=== PATIENT | female | born 2000 | race African-American/Black ===

== ENCOUNTER 2020-03-08 15:18 | Emergency (ER) | payer BC, OTHER ==
--- OUTSIDE RECORDS SUMMARY | 2020-03-08 15:23 | XMS REPORT | Summary of Care ---
:2000 Author Organization [facility] - [facility] Address [address] [place] [id number] Care Team Providers Name Role Phone Gurvinder Rachel Insurance [employer] Pcp, Does Not Have A Primary Care Provider Reason for Visit Reason Comments Headache Other COVID swab Auth/Cert Status Reason Specialty Diagnoses / Referred By Referred To Procedures Contact Contact Emergency Medicine [facility] Em ergency Dept [address] [phone] Fax: Encounter Details Date Type Department Care Team Description 02/24/2020 Emergency ADC-Emergency Rosemary Garcia, Nonintr actable headache, Department DO unspecified chronicity [address] pattern, [place] [address] headache type ([place] [address] Dx) [phone] Allergies No Known Allergiesdocumented as of this encounter (statuses as of 02/24/2020) Medications Medication Sig Dispensed Refills Start Date End Date Status VYS50-gadt Take 1 Dose by 60 Each 5 10/31/2018 Act rubens carb,uvv-EO-wkw-dha mouth daily. (CITRANATAL ASSURE) 35 mg iron-1 mg -50 mg-300 mg combo pack ibuprofen 600 mg Take 1 tablet by 30 tablet 1 04/03/2019 Active tabletIndications: 39 mouth every 6 weeks gestation of (six) hours as needed (pain). simethicone 80 mg Take 2 tablets by 0 04/03/2019 Active chewable mouth after meals tabletIndications: 39 and at bedtime. weeks gestation of documented as of this encounter (statuses as of 02/24/2020) Active Problems Problem Noted Date Routine follow-up 05/04/2019 Previous section 03/17/2019 documented as of this encounter (statuses as of 02/24/2020) Resolved Problems Problem Noted Date Resolved Date care and examination immediately after delivery 1 06/04/2018 05/04/2019 High-risk , third trimester 03/17/2019 39 weeks gestation of 10/22/2017 03/17/20 19 Obesity (BMI 30-39.9) 10/22/2017 05/04/2019 Liveborn , of sears , born in hospital by 10/22/2017 05/04/2019 delivery documented as of this encounter (statuses as of 02/24/2020) Social History Tobacco Use Types Packs/Day Years Used Date Never Smoker Smokeless Tobacco: Never Used Alcohol Use Drinks/Week oz/Week Comments No Sex Assigned at Date Recorded Not on file COVID-19 Exposure Response Date Recorded In the last month, have you been in contact with Yes 02/24/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 documented as of this encounter Last Filed Vital Signs Vital Sign Reading Time Taken Comments Blood Pressure 136/87 02/24/2020 3:05 PM CABINET WORKER Pulse 91 02/24/2020 3:05 PM CABINET WORKER Temperature 37.3 C (99.2 F) 02/24/2020 3:05 PM CABINET WORKER Respiratory Rate 18 02/24/2020 3:05 PM CABINET WORKER Oxygen Saturation 98% 02/24/2020 3:05 PM CABINET WORKER Inhaled Oxygen Concentration - - Weight 81.6 kg (180 lb) 02/24/2020 3:05 PM CABINET WORKER Height 154.9 cm (5' 1") 02/24/2020 3:05 PM CABINET WORKER Body Mass Index 34.01 02/24/2020 3:05 PM CABINET WORKER documented in this encounter Discharge Instructions Rosemary Good, - 02/24/2020DIAGNOSIS 1. Headache 2. Suspected covid NO LIFE-THREATENING FINDINGS ON TODAY'S EXAM. PROCEDURES IN THE ER TODAY: None MEDICATIONS ADMINISTERED IN THE ER TODAY: None YOUR PRESCRIPTIONS AND [id number] MEDICATION RECOMMENDATIONS: You may use over the counter decongestants (such as sudafed) or pain medications (excedrin migraine)for your headache. SPECIAL CARE INSTRUCTIONS: None FOLLOW-UP RECOMMENDATIONS: RECOMMEND FOLLOW-UP WITH A PRIMARY CARE PROVIDER OR SPECIALIST IN 2-5 DAYS, ESPECIALLY IF NO IMPROVEMENT IN SYMPTOMS. TO FOLLOW-UP WITHIN THE [facility], TRY THESE OPTIONS (CLINIC APPOINTMENTS AVAILABLE ON [id number] BASIS): 1. SCHEDULE AN APPOINTMENT ONLINE AT [email or web address] 2. OR CALL THE [facility] AT OR 3. OR CALL YOUR [facility] PHYSICIAN'S OFFICE DIRECTLY IF YOU ARE ALREADY AN ESTABLISHED [facility] PATIENT. OR, YOU MAY FOLLOW-UP WITH A PROVIDER OF YOUR CHOICE, SUCH : 1. A PHYSICIAN OF YOUR CHOICE 2. [facility], . LOCATIONS IN [facility] 3. [facility], [address] [place] [address]; [phone] RETURN TO ER FOR WORSENING OF SYMPTOMS. AttachmentsThe following attachments cannot be sent through Care Everywhere. Symptoms of COVID-19 Infection (Bulgarian)Headaches, Self-Care for (Bulgarian) documented in this encounter ED Notes Kathia Sandoval RN - 02/24/2020 3:28 PM CSTPatient states she does not want to do COVID swab. notified and at bedside to discuss options with patient. Nicole Bonilla RN - 02/24/2020 3:01 PM CSTPatient states she has had a headache x3 weeks. She has taken OTC meds with no relief. She also has been experiencing aching in her legs. She states her mother is COVID positive and she is concerned she may have COVID as well. Rosemary Ahumada DO - 02/24/2020 2:53 PM CABINET WORKER [facility] Emergency Department Note Patient Name: Leann Bishop Date of : 2000 19 year old female Treatment Room: [address] Primary Care Physician: PATIENT DOES NOT HAVE A PCP Patient Escorted by: Self [9] Mode of Arrival: Personal means [1] EMS Treatment Prior to ED Arrival: [employer] treatment: None Travel and Exposure Screening: Symptoms Does patient have any of these symptoms?: (not recorded) Exposure Screening Has patient had contact with someone with a communicable disease in the last month?: (not recorded) Diseases exposed to:: (not recorded) Is Patient ?: (not recorded) Exposure Date: (not recorded) Chief Complaint: Chief Complaint Patient presents with Headache Other COVID swab History of Present Illness: Patient presents for eval for generalized WEBSTER x 3 weeks. No fevers. No neck pain or stiffness. No cough or URI sx. Has tried Motrin and Tylenol and states not helping. States the WEBSTER has been coming and going but not sure what makes it better. No change with bright lights or loud sounds. No injury or trauma. No fevers. Some facial congestion. States her mother was admitted on Saturday here for covid (today is Saturday). 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 Has not had a covid test herself. No cough. No blurry vision. No weakness to arms/legs. Here for eval. Past Medical History/Immunizations: Past Medical History: Diagnosis Date STD (sexually transmitted disease) /treated Tetanus received in last 5 years: Unknown Allergies: No Known Allergies Past Social History: Tobacco Use Never smoked or used smokeless tobacco. Alcohol Use No. Drug Use No. Sexual Activity Sexually active; Partners: Male; Control/Protection: None. Past Surgical History: Past Surgical History: Procedure Laterality Date SECTION N/A 10/22/2017 Surgeon: Delia Delatorre MD; Location: [facility] OR Location SECTION N/A 04/01/2019 Surgeon: Delia Delatorre MD; Location: [facility] OR Location Review of Systems: Review of Systems Constitutional: Negative for chills and fever. HENT: Negative for ear discharge. Respiratory: Negative for cough and shortness of breath. Cardiovascular: Negative for chest pain. Gastrointestinal: Negative for abdominal pain, nausea and vomiting. Genitourinary: Negative for dysuria. Musculoskeletal: Negative for arthralgias and neck pain. Skin: Negative for wound. Neurological: Positive for headaches. Psychiatric/Behavioral: Negative for agitation. Endocrine: Negative for goiter. Physical Exam: ED Triage Vitals [02/24/20 1505] Weight 81.6 kg (180 lb) Actual or estimated Estimated by patient/family report Height 1.549 m (5' 1") BP 136/87 Pulse 91 Resp 18 Temp 37.3 C (99.2 F) Temp source Oral SpO2 98 % Measured on Room air Physical Exam Vitals signs and nursing note reviewed. Constitutional: Appearance: Normal appearance. She is obese. HENT: Head: Normocephalic and atraumatic. Right Ear: Tympanic membrane normal. Left Ear: Tympanic membrane normal. Mouth/Throat: Mouth: Mucous membranes are moist. Pharynx: Oropharynx is clear. No oropharyngeal exudate or posterior oropharyngeal erythema. Neck: Musculoskeletal: Normal range of motion and neck supple. Cardiovascular: Rate and Rhythm: Normal rate. Pulses: Normal pulses. Pulmonary: Effort: Pulmonary effort is normal. No respiratory distress. Musculoskeletal: Normal range of motion. Skin: General: Skin is warm. Neurological: General: No focal deficit present. Mental Status: She is alert and oriented to person, place, and time. 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 Lab Results (24h): No results found for this or any previous visit (from the past 24 hour(s)). Orders and Treatments: Orders Placed This Encounter Procedures CORONAVIRUS COVID-19 TESTING No orders of the defined types were placed in this encounter. ED COURSE patient presents for eval for generalized WEBSTER x 3 weeks that comes and goes. No injury or trauma. Nofevers. No neck pain or stiffness. No change with bright lights or loud sounds. Has been using Motrin and Tylenol and not helping. Mother admitted on Saturday (today is Saturday) for covid. VSS here in the EC. Neck is supple without meningismus. No focal neuro deficits. No concern for SAH or bacterial meningitis based on H&P. Story not typical for migraine WEBSTER. Suspect covid. Offered a COVID test and patient declines. Stable here in the EC and is ok for discharge home with PCP f/u. Can use otc meds prn. MDM: Coding Scoring Tools: No data recorded Diagnosis/Impression: ICD-10-CM ICD-9-CM 1. Nonintractable headache, unspecified chronicity pattern, unspecified headache type R51.9 784.0 Disposition/Condition: ED Disposition ED Disposition Condition Comment Disch - Home Stable Discharge Medications: Patient's Medications START taking these medications No medications on file CONTINUE taking these medications which have NOT CHANGED IBUPROFEN 600 MG TABLET Take 1 tablet by mouth every 6 (six) hours as needed (pain). [id number] CARB,DYG-SS-[id number]-DHA (CITRANATAL ASSURE) 35 MG IRON-1 MG -50 MG-300 MG COMBO PACK Take1 Dose by mouth daily. SIMETHICONE 80 MG CHEWABLE TABLET Take 2 tablets by mouth after meals and at bedtime. START taking Modified Medications as Prescribed No medications on file STOP taking these medications No medications on file Follow-up: Electronically signed by: Rosemary Garcia DO 02/24/2020 3:21 PM NET WORKER documented in this encounter Miscellaneous Notes ED Nurse Note - Kathia Sandoval RN - 02/24/2020 3:44 PM CSTPatient provided discharge instructions, AVS, return precautions, and Quarantine instructions. Patient ambulated off the unit in no acute distress. documented in this encounter Plan of Treatment Health Maintenance Due Date Last Done Comments PNEUMOCOCCAL 0-64 YEARS 2004 COMBINED SERIES (1 of 3 - PCV13) MENINGOCOCCAL B VACCINES (1 2008 of 2 - Risk Bexsero 2-dose series) HPV VACCINES (1 - 2-dose 2009 series) WELL CARE VISIT: 12-21 YEARS 2010 (yearly) DTaP,Tdap,and Td Vaccines (1 2017 - Tdap) PAP SMEAR 07/27/2019 INFLUENZA VACCINE (#1) 2019 CHLAMYDIA SCREENING 03/17/2020 03/17/2019, 12/23/2018, 09/04/2018, Additional history exists Depression Screening 03/30/2020 03/30/2019 MENINGOCOCCAL VACCINE Aged Out No longer eligible based on patient 's age to complete this topic documented as of this encounter Procedures Procedure Name Priority Date/Time Associated Diagnosis Comme nts CONSENT/REFUSAL FOR Routine 02/24/2020 2:52 PM CABINET WORKER DIAGNOSIS AND TREATMENT documented in this encounter Results Not on filedocumented in this encounter Visit Diagnoses Diagnosis Nonintractable headache, unspecified chr onicity pattern, unspecified headache type - Primary documented in this encounter Additional Health Concerns Infection Onset Date Last Indicated Resolved Time COVID-19 Rule Out 02/24/2020 02/24/2020 documented as of this encounter Insurance Payer Benefit Plan Subscriber ID Effective Dates Phone Address Type / Group [facility] [id number] 2019-Giacomo [phone] [address] PPO/POS [place] - OUT OF t [id number] [place] [address] documented as of this encounter
--- OUTSIDE RECORDS SUMMARY | 2020-03-08 15:23 | XMS REPORT | Continuity of Care Document ---
:2000 Author Organization [facility] t Address [address] [place] [address] Care Team Providers Name Role Phone Delfino Garcia DO Attending Clinician Narciso WILLIAMSON Attending Clinician Gurvinder Landry MD Attending Clinician Demetrius CACERES Attending Clinician Problems This patient has no known problems. Allergies, Adverse Reactions, Alerts This patient has no known allergies or adverse reactions. Medications This patient has no known medications. Procedures This patient has no known procedures. Encounters Start End Encounter Admission Attending Care Care Encounter Source Date/Time Date/Time Type Type Clinicians Facility Department ID 2020-02-24 2020-02-24 [place] [id number] 15:07:00 15:45:00 Rosemary Grimm [id number] [place] [id number] [place] [address] [id number] 2019-12-15 2019-12-15 [facility] [id number] 10:30:00 11:03:00 Gume Grimm [id number] [place] [id number] [place] [address] [id number] 2019-12-15 2019-12-15 [id number] 03:20:00 06:19:00 Raad Grimm [id number] [place] [id number] [place] [id number] 2019-06-23 2019-06-23 [facility] [id number] 13:10:27 13:40:27 Visit Maria Antonia Grimm [id number] [place] [id number] [facility] [id number] formerly [facility] [address] [facility] Results This patient has no known results.
--- OUTSIDE RECORDS SUMMARY | 2020-03-08 15:23 | XMS REPORT | Summary of Care ---
:2000 [facility] Address [address] [place] [address] Care Team Providers Name Role Phone Gurvinder Rachel Insurance [employer] Pcp, Does Not Have A Primary Care Provider Reason for Visit Reason Comments Anxiety Encounter Details Date Type Department Care Team Description 12/15/2019 Emergency ADC-Emergency uGme Viveros MD Chest pain, Department [address] [place] [address] unspecified type [address] [facility] [address] ([address] Dx) [place] [address] [place], [place] [address] Allergies No Known Allergiesdocumented as of this encounter (statuses as of 12/15/2019) Medications Medication Sig Dispensed Refills Start Date End Date Status [id number] Take 1 Dose by 60 Each 5 10/31/2018 Act rubens carb,fhd-WV-rxz-dha mouth daily. (CITRANATAL ASSURE) 35 mg iron-1 [...] as of this encounter (statuses as of 12/15/2019) Active Problems Problem Noted Date Routine follow-up 05/04/2019 Previous section 03/17/2019 documented as of this encounter (statuses as of 12/15/2019) Resolved Problems Problem Noted Date Resolved Date care and examination immediately after delivery 1 06/04/2018 05/04/2019 High-risk , third trimester 03/17/2019 39 weeks gestation of 10/22/2017 03/17/20 19 Obesity (BMI 30-39.9) 10/22/2017 05/04/2019 Liveborn infant, of sears , born in hospital by 10/22/2017 05/04/2019 delivery documented as of this encounter (statuses as of 12/15/2019) Social History Tobacco Use Types Packs/Day Years Used Date Never Smoker Smokeless Tobacco: Never Used Alcohol Use Drinks/Week oz/Week Comments No Sex Assigned at Date Recorded Not on file COVID-19 Exposure Response Date Recorded In the last month, have you been in contact with No / Unsure 12/15/2019 10:21 AM CDT someone who was confirmed or suspected to have Coronavirus / COVID-19? documented as of this encounter Last Filed Vital Signs Vital Sign Reading Time Taken Comments Blood Pressure 123/74 12/15/2019 10:23 AM CDT Pulse 93 12/15/2019 10:23 AM CDT Temperature 37.1 C (98.7 F) 12/15/2019 10:23 AM CDT Respiratory Rate 18 12/15/2019 10:23 AM CDT Oxygen Saturation 96% 12/15/2019 10:23 AM CDT Inhaled Oxygen Concentration - - Weight 81.6 kg (180 lb) 12/15/2019 10:23 AM CDT Height - - Body Mass Index 34.01 12/15/2019 3:17 AM CDT documented in this encounter Discharge Instructions InstructionsNeGume madden MD - 12/15/2019 RETURN FOR ANY QUESTIONS OR CONCERNS Today you were seen by Gume Viveros Jr., MD You were seen today for Chief Complaint Patient presents with Anxiety Your ER diagnosis was ICD-10-CM ICD-9-CM 1. Chest pain, unspecified type R07.9 786.50 NO LIFE-THREATENING FINDINGS ON TODAY'S EXAM. YOUR PRESCRIPTIONS : Check out [employer] for medication discounts Medication List ASK your doctor about these medications ibuprofen 600 mg tablet Commonly known as: IBU Take 1 tablet by mouth every 6 (six) hours as needed (pain). [id number]-[id number] carb,its-FB-rtu-dha 35 mg iron-1 mg -50 mg-300 mg combo pack Commonly known as: CitraNatal Assure Take 1 Dose by mouth daily. simethicone 80 mg chewable tablet Commonly known as: GAS RELIEF (SIMETHICONE) Take 2 tablets by mouth after meals and at bedtime. ER precautions and follow up : 1. Return to ER if your symptoms should worsen or fail to improve within 72 hours. 2. The care provided in the emergency room was for acute problems only. 3. You should follow up with your primary care provider within 72 hours. 4. Fill and take all your medications as prescribed. 5. Make sure you are staying adequately hydrated. Busque attencion immediatamente si usted tiene los sitomas sigue, vuelve peor o si hay sitomas nuevas o para cualquiera preoccupacion incluyendo dolor del pecho, falta aire, se siente debile, mas fievre, mas dolor, nausea, vomitando, sangrando que no es normal, confusion, baja or pierdas conciencia. MAY FOLLOW-UP WITH A PROVIDER OF YOUR CHOICE, SUCH : 1. A PHYSICIAN OF YOUR CHOICE 2. [facility], . LOCATIONS IN [facility] 3. [facility], [address] [place] [address]; [phone] OR, IF YOU WISH TO FOLLOW-UP WITHIN THE [facility], MAY TRY THESE OPTIONS (CLINIC APPOINTMENTS AVAILABLE ON [id number] BASIS): 1. SCHEDULE AN APPOINTMENT ONLINE AT [email or web address] 2. OR CALL THE [facility] AT OR 3. OR CALL YOUR [facility] PHYSICIAN'S OFFICE DIRECTLY IF YOU ARE ALREADY AN ESTABLISHED [facility] PATIENT. [facility] RETURN TO WORK / SCHOOL EXCUSE Candimercy Severo Juliopancho WAS SEEN IN THE ER AND DISCHARGED 12/15/2019 TODAY, 10:46 AM & May return to Work / School / Incarceration on X with activity as tolerated indicated below. ___The following limitations apply until pt is seen by Physician and cleared to return to normal activity. _X_ Off for two days and return to activity as tolerated at work or school ___ No Sports ___ No work ___ Do not return until fever free for 24 hours. ___ No school GUME VIVEROS Jr., MD [facility] EMERGENCY DEPRTMENT [address] [place] [address] [place] [address] ### The patient may have been given Narcotic pain medications during their stay in the ED that may show up on a Drug Screen. The hospital discharge paper work will identify these medications. AttachmentsThe following attachments cannot be sent through Care Everywhere. Chest Pain, Uncertain Cause (Tristanian)documented in this encounter ED Notes Nicole Islas RN - 12/15/2019 10:21 AM CDTPatient released five hours ago from this ED after cardiac workup for chest pain. States she has stayed nervous and feels like the medicine they gave her (metoprolol) has worn off. She had a negative troponin, d-dimer during previous ED visit. Pt has appointment with PCP at 1400 today. Gume Benitez MD - 12/15/2019 10:11 AM CDT EMERGENCY DEPARTMENT ENCOUNTER [facility] Patient Name: Leann Bishop Date of : 2000 19 year old Exam Room:[address] Primary Care Physician: PATIENT DOES NOT HAVE A PCP Pre- Hospital Patient Escorted by: Self [9] Mode of Arrival: Personal means [1] EMS Treatment Prior to ED Arrival: Chief Complaint Chief Complaint Patient presents with Anxiety HPI History provided by: Patient Chest Pain Pain location: Substernal area Pain quality: stabbing Pain radiates to: Does not radiate Pain severity: Moderate Onset quality: Sudden Duration: 1 day Context: not breathing and not drug use Associated symptoms: no abdominal pain, no cough, no dizziness, no fatigue, no fever, no headache, no nausea, no palpitations, no shortness of breath and no vomiting Risk factors: obesity Risk factors: no control, no coronary artery disease, no high cholesterol, no hypertension, nosmoking and no surgery Risk factors comment: No recent travel Past Medical History / Immunizations Past Medical History: Diagnosis Date STD (sexually transmitted disease) /treated Tetanus received in last 5 years: No Childhood immunizations: Up-to-date Past Surgical History Past Surgical History: Procedure Laterality Date SECTION N/A 10/22/2017 Surgeon: Delia Delatorre MD; Location: [facility] OR Location SECTION N/A 04/01/2019 Surgeon: Delia Delatorre MD; Location: [facility] OR Location Allergies No Known Allergies Social History Tobacco Use Never smoked or used smokeless tobacco. Alcohol Use No. Drug Use No. Sexual Activity Sexually active; Partners: Male; Control/Protection: None. Review of Systems Review of Systems Constitutional: Negative. Negative for chills, fatigue, fever and unexpected weight change. HENT: Negative. Eyes: Negative. Negative for discharge and itching. Respiratory: Negative. Negative for cough, chest tightness, shortness of breath and wheezing. Cardiovascular: Positive for chest pain. Negative for palpitations. Gastrointestinal: Negative. Negative for abdominal distention, abdominal pain, nausea and vomiting. Genitourinary: Negative. Negative for dysuria, urgency, frequency and flank pain. Musculoskeletal: Negative. Skin: Negative. Negative for color change, pallor and wound. Neurological: Negative. Negative for dizziness, syncope, light-headedness and headaches. Psychiatric/Behavioral: Negative. Negative for agitation and behavioral problems. Anxiety All other systems reviewed and are negative. Endocrine: Endocrine negative Physical Exam BP 123/74 | Pulse 93 | Temp 37.1 C (98.7 F) (Oral) | Resp 18 | Wt 81.6 kg (180 lb) | SpO2 96% | BMI 34.01 kg/m Physical Exam Vitals signs reviewed. Constitutional: Appearance: She is well-developed. HENT: Head: Normocephalic and atraumatic. Eyes: Conjunctiva/sclera: Conjunctivae normal. Neck: Musculoskeletal: Neck supple. Cardiovascular: Rate and Rhythm: Normal rate and regular rhythm. Heart sounds: Normal heart sounds. Pulmonary: Effort: Pulmonary effort is normal. No respiratory distress. Breath sounds: Normal breath sounds. No stridor. No wheezing or rales. Abdominal: General: Bowel sounds are normal. There is no distension. Palpations: Abdomen is soft. Tenderness: There is no abdominal tenderness. There is no guarding or rebound. Musculoskeletal: Normal range of motion. Skin: General: Skin is warm and dry. Neurological: Mental Status: She is alert and oriented to person, place, and time. Cranial Nerves: No cranial nerve deficit. Sensory: No sensory deficit. Psychiatric: Behavior: Behavior normal. Thought Content: Thought content normal. Judgment: Judgment normal. Labs Recent Results (from the past 24 hour(s)) POCT TEST Collection Time: 12/15/19 3:51 AM Result Value Ref Range POCT PREG negative On board controls acceptable with C Line present POCT PREG LOT # [id number] POCT PREG TEST DATE 11/19/2020 CBC WITH DIFF Collection Time: 12/15/19 3:52 AM Result Value Ref Range WBC 8.40 4.30 - 11.10 10*3/L RBC 4.83 3.93 - 5.25 10*6/L HGB 12.7 11.6 - 15.0 g/dL HCT 36.3 35.7 - 45.2 % MCV 75.2 (L) 80.6 - 95.5 fL MCH 26.3 25.9 - 32.8 pg MCHC 35.0 31.6 - 35.1 g/dL RDW-SD 37.0 (L) 39.0 - 49.9 fL RDW-CV 13.7 12.0 - 15.5 % PLT 272 166 - 358 10*3/L MPV 10.4 9.5 - 12.9 fL NRBC/100 WBC 0.0 0.0 - 10.0 /100 WBCs NRBC x10^3 <0.01 10*3/L GRAN MAT (NEUT) % 62.6 % IMM GRAN % 0.40 % LYMPH % 28.6 % MONO % 6.9 % EOS % 1.1 % BASO % 0.4 % GRAN MAT x10^3(ANC) 5.27 1.88 - 7.09 10*3/uL IMM GRAN x10^3 0.03 0.00 - 0.06 10*3/uL LYMPH x10^3 2.40 1.32 - 3.29 10*3/uL MONO x10^3 0.58 0.33 - 0.92 10*3/uL EOS x10^3 0.09 0.03 - 0.39 10*3/uL BASO x10^3 0.03 0.01 - 0.07 10*3/uL BASIC METABOLIC PANEL (NA, K, CL, CO2, GLUCOSE, BUN, CREATININE, CA) Collection Time: 12/15/19 3:52 AM Result Value Ref Range NA 138 135 - 145 mmol/L K 3.5 3.5 - 5.0 mmol/L CL 106 98 - 108 mmol/L CO2 TOTAL 27 23 - 31 mmol/L AGAP 5 2 - 16 BUN 14 7 - 23 mg/dL GLUCOSE 126 (H) 70 - 110 mg/dL CREATININE 0.88 0.50 - 1.04 mg/dL CALCIUM 9.4 8.6 - 10.6 mg/dL eGFR Calculation (Non-) 81.1 mL/min/1.73m2 eGFR Calculation () 98.3 mL/min/1.73m2 TROPONIN I Collection Time: 12/15/19 3:52 AM Result Value Ref Range TROPONIN I <0.012 <=0.034 ng/mL D-DIMER Collection Time: 12/15/19 5:12 AM Result Value Ref Range D-DIMER 0.27 <0.41 g/mL (FEU) Imaging No results found for this visit on 12/15/19. Orders and Treatments No orders of the defined types were placed in this encounter. No orders of the defined types were placed in this encounter. Procedures See ED Procedure Note Notes & MDM Patient was evaluated for an emergency medical condition related to Anxiety . Differential diagnoses considered by presenting complaints but not limited to: Non specific Chest pain MSK chest pain Anxiety Assessment: The patient presented earlier for similar complaints. He has no risk factors for coronary artery disease. The patient denies any recent travel or control use. The patient states that she feels anxious. She has no other comorbidities. The patient will be discharged to follow-up. She has an appointment later today to see a PCP. History, physical exam findings, results of visit, differential diagnosis, medication regimens and plan of future care have been considered. Additional MDM may be found in the ED course. Differential diagnosis considered and final disposition made based on information gathered during evaluation and may not be completely ruled out or specifically listed. Vital signs were rechecked before final disposition. Diagnosis ICD-10-CM ICD-9-CM 1. Chest pain, unspecified type R07.9 786.50 Disposition & Follow Up ED Disposition None Patient's Medications START taking these medications No medications on file CONTINUE taking these medications which have NOT CHANGED IBUPROFEN 600 MG TABLET Take 1 tablet by mouth every 6 (six) hours as needed (pain). [id number] CARB,WJD-AR-VSE-DHA (CITRANATAL ASSURE) 35 MG IRON-1 MG -50 MG-300 MG COMBO PACK Take1 Dose by mouth daily. SIMETHICONE 80 MG CHEWABLE TABLET Take 2 tablets by mouth after meals and at bedtime. START taking Modified Medications as Prescribed No medications on file STOP taking these medications No medications on file Gume Viveros Jr., MD Clinical [employer] [facility] Emergency Department documented in this encounter Miscellaneous Notes ED Nurse Note - Nicole Islas RN - 12/15/2019 11:02 AM CDTPT D/C home. GCS15, VS stable, no ataxia noted. Given no prescriptions and D/C paperwork. S/S decreased at this time. Pt ambulatory at time of discharge. Pt educated on anxiety, med usage, follow up care with PCP, s/s worsening condition. Pt verbalized understanding. Work/school note was not given. documented in this encounter Plan of Treatment [...] this topic documented as of this encounter Results Not on filedocumented in this encounter Visit Diagnoses Diagnosis Chest pain, unspecified type - Primary documented in this encounter Insurance Payer Benefit Plan Subscriber ID Effective Dates Phone Address Type / Group [facility] [id number] 2019-G[place]omo [phone] [address] PPO/POS [place] - OUT OF [id number] [place] [address] documented as of this encounter"
--- OUTSIDE RECORDS SUMMARY | 2020-03-08 15:23 | XMS REPORT | Summary of Care ---
:2000 Author Organization [facility] - [facility] Address [address] [place] [address] Care Team Providers Name Role Phone Gurvinder Rachel Insurance Hmo Pcp, Does Not Have A Primary Care Provider Reason for Referral Radiology Services (STAT) Status Reason Specialty Diagnoses / Referred By Referred To Procedures Contact Contact New Request Diagnostic Diagnoses Chest pain, unspecified type Raad Landry, Radiology Procedures XR CHEST 1 VW 301 [facility] [id number] [place] [id number] Reason for Visit Reason Comments Breast Pain Chest wall pain Auth/Cert Status Reason Specialty Diagnoses / Referred By Referred To Procedures Contact Contact Emergency Medicine [facility] Em ergency Dept [address] [place] [address] Fax: Encounter Details Date Type Department Care Team Description 12/15/2019 Emergency ADC-Emergency Raad Landry MD Chest pain, unspecified Department 301 [facility] type (Primary Dx) [address] [place] [address] Dr art [id number] [place] [address] [place], [place] [phone] Allergies No Known Allergiesdocumented as of this encounter (statuses as of 12/15/2019) Medications Medication Sig Dispensed Refills Start Date End Date Status [id number] Take 1 Dose by 60 Each 5 10/31/2018 Act rubens carb,cyc-TY-rya-dha mouth daily. (CITRANATAL ASSURE) 35 mg iron-1 [...] in contact with No / Unsure 12/15/2019 3:13 AM CDT someone who was confirmed or suspected to have Coronavirus / COVID-19? documented as of this encounter Last Filed Vital Signs Vital Sign Reading Time Taken Comments Blood Pressure 135/91 12/15/2019 6:00 AM CDT Pulse 94 12/15/2019 6:00 AM CDT Temperature 37.3 C (99.1 F) 12/15/2019 3:17 AM CDT Respiratory Rate 15 12/15/2019 6:03 AM CDT Oxygen Saturation 100% 12/15/2019 6:00 AM CDT Inhaled Oxygen Concentration - - Weight 81.6 kg (180 lb) 12/15/2019 3:17 AM CDT Height 154.9 cm (5' 1") 12/15/2019 3:17 AM CDT Body Mass Index 34.01 12/15/2019 3:17 AM CDT documented in this encounter Discharge Instructions Raad Balderas MD - 12/15/2019 DIAGNOSIS Diagnoses that have been ruled out: None Diagnoses that are still under consideration: None Final diagnoses: Chest pain, unspecified type NO LIFE-THREATENING FINDINGS ON TODAY'S EXAM. PROCEDURES IN THE ER TODAY: Orders Placed This Encounter Procedures XR CHEST 1 VW CBC WITH DIFF BASIC METABOLIC PANEL (NA, K, CL, CO2, GLUCOSE, BUN, CREATININE, CA) TROPONIN I POCT TEST D-DIMER MEDICATIONS ADMINISTERED IN THE ER TODAY: Orders Placed This Encounter Medications metoprolol (LOPRESSOR) injection 2.5 mg YOUR PRESCRIPTIONS AND [id number] MEDICATION RECOMMENDATIONS: None SPECIAL CARE INSTRUCTIONS: Follow up with PCP Return to the ED if worsening of symptoms. FOLLOW-UP RECOMMENDATIONS: RECOMMEND FOLLOW-UP WITH A PRIMARY CARE PROVIDER OR SPECIALIST IN 2-5 DAYS, ESPECIALLY IF NO IMPROVEMENT IN SYMPTOMS. TO FOLLOW-UP WITHIN THE [facility], TRY THESE OPTIONS (CLINIC APPOINTMENTS AVAILABLE ON [id number]-RAQZ BASIS): 1. SCHEDULE AN APPOINTMENT ONLINE AT WWW.[facility] 2. OR CALL THE [facility] ACCESS CENTER AT OR 3. OR CALL YOUR [facility] PHYSICIAN'S OFFICE DIRECTLY IF YOU ARE ALREADY AN ESTABLISHED [facility] PATIENT. OR, YOU MAY FOLLOW-UP WITH A PROVIDER OF YOUR CHOICE, SUCH : 1. A PHYSICIAN OF YOUR CHOICE 2. [facility], . LOCATIONS IN [facility] 3. [facility], [address] [place] [address]; [phone] RETURN TO ER FOR WORSENING OF SYMPTOMS. AttachmentsThe following attachments cannot be sent through Care Everywhere. Chest Pain, Noncardiac ([place] Ver[place]an)documented in this encounter ED Notes Margarette Jon RN - 12/15/2019 3:13 AM CDTCC: Pt reports chest wall pain that [facility] told her was because her breast size was too large. The patient reports the pain is keeping her awake. The patient reports SOB and wheezing recently. Pt arrives 100% on RA. Passed 1 min walk test 97% O2 sat PMHx: none PSH: x2 MEDS: ibuprofen yesterday LMP: 1 wk ago Tetanus: unk Awake, alert, oriented, resp reg unlabored, skin warm, color appropriate for race, moves all ext without difficulty, amb with steady gait Appears in no distress Raad Shoemaker MD - 12/15/2019 3:08 AM CDT [facility] EMERGENCY DEPARTMENT ENCOUNTER Demographics Patient Name: Leann Bishop Date of : 2000 19 year old Treatment Room: [facility] Primary Care Physician: PATIENT DOES NOT HAVE A PCP Pre Hospital Care Patient Escorted by: Self [9] Mode of Arrival: Personal means [1] EMS Treatment Prior to ED 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 Pain is sharp and reproduced with palpation of the chest to mid sternal area. Denies any chronic medical problems or medications. H/o C- sections x 2. Past Medical and Social History Past Medical History: Diagnosis Date STD (sexually transmitted disease) /treated Social History Tobacco Use Smoking status: Never Smoker Smokeless tobacco: Never Used Substance Use Topics Alcohol use: No Drug use: No Past Surgical History Past Surgical History: Procedure Laterality Date SECTION N/A 10/22/2017 Surgeon: Delia Delatorre MD; Location: [facility] Labor and Delivery OR Location SECTION N/A 04/01/2019 Surgeon: Delia Delatorre MD; Location: [facility] Labor and Delivery OR Location Medications Medications metoprolol (LOPRESSOR) injection 2.5 mg (2.5 mg Slow IV Push Given 12/15/19 0611) Allergies No Known Allergies Review of Systems Review of Systems Constitutional: Negative. HENT: Negative. Eyes: Negative. Respiratory: Negative. Cardiovascular: Positive for chest pain. Gastrointestinal: Negative. Genitourinary: Negative. Musculoskeletal: Negative. Skin: Negative. Neurological: Negative. Psychiatric/Behavioral: Negative. Endocrine: Endocrine negative Physical Exam BP (!) 135/91 | Pulse 94 | Temp 37.3 C (99.1 F) (Oral) | Resp 15 | Ht 1.549 m (5' 1") | Wt 81.6 kg (180 lb) | SpO2 100% | BMI 34.01 kg/m Physical Exam Vitals signs and nursing note reviewed. Constitutional: General: She is not in acute distress. Appearance: She is well-developed. She is not ill-appearing or toxic-appearing. HENT: Head: Normocephalic and atraumatic. Right Ear: Ear canal and external ear normal. Left Ear: Ear canal and external ear normal. Nose: Nose normal. No mucosal edema or rhinorrhea. Right Sinus: No frontal sinus tenderness. Left Sinus: No frontal sinus tenderness. Mouth/Throat: Pharynx: Uvula midline. Eyes: General: Lids are normal. Conjunctiva/sclera: Conjunctivae normal. Pupils: Pupils are equal, round, and reactive to light. Neck: Musculoskeletal: Full passive range of motion without pain, normal range of motion and neck supple. Thyroid: No thyroid mass or thyromegaly. Vascular: No JVD. Trachea: Trachea and phonation normal. Cardiovascular: Rate and Rhythm: Regular rhythm. Tachycardia present. Heart sounds: Normal heart sounds. Pulmonary: Effort: Pulmonary effort is normal. No tachypnea or respiratory distress. Breath sounds: Normal breath sounds. Abdominal: General: Bowel sounds are normal. Palpations: Abdomen is soft. Tenderness: There is no rebound. Musculoskeletal: Normal range of motion. Lymphadenopathy: Cervical: No cervical adenopathy. Skin: Capillary Refill: Capillary refill takes less than 2 seconds. Findings: No rash. Neurological: Mental Status: She is alert and oriented to person, place, and time. GCS: GCS eye subscore is 4. GCS verbal subscore is 5. GCS motor subscore is 6. Cranial Nerves: No cranial nerve deficit. Sensory: No sensory deficit. Motor: No tremor or atrophy. Psychiatric: Behavior: Behavior normal. Thought Content: Thought content normal. Judgment: Judgment normal. Labs and Studies Recent Results (from the past 24 hour(s)) POCT TEST Collection Time: 12/15/19 3:51 AM Result Value Ref Range POCT PREG negative On board controls acceptable with C Line present POCT PREG LOT # [id number] POCT PREG TEST DATE 11/19/2020 CBC WITH [...] Ref Range D-DIMER 0.27 <0.41 g/mL (FEU) Hospital Encounter on 12/15/19 XR CHEST 1 VW Narrative XR CHEST 1 VW HISTORY: chest pain COMPARISON: None available FINDINGS: The lungs are clear. No focal consolidation is present. No pleural effusion or pneumothorax is present. The cardiomediastinal silhouette is normal. The osseous structures are unremarkable. Impression No acute cardiopulmonary abnormality is present. Preliminary Report Dictated by Resident: Phoenix Floyd EKG: normal sinus rhythm. Rate 101, no ST elevation. Orders and Treatments Orders Placed This Encounter Procedures XR CHEST 1 VW CBC WITH DIFF BASIC METABOLIC PANEL (NA, K, CL, CO2, GLUCOSE, BUN, CREATININE, CA) TROPONIN I POCT TEST D-DIMER Orders Placed This Encounter Medications metoprolol (LOPRESSOR) injection 2.5 mg Contact information for follow-up ADC-Emergency Department Specialty: Emergency Medicine [address] [place] [id number] Instructions: As needed Discharge Medication List as of 12/15/2019 5:53 AM CONTINUE these medications which have NOT CHANGED Details ibuprofen 600 mg tablet Take 1 tablet by mouth every 6 (six) hours as needed (pain)., eRX, Disp-30 tablet, R-1 simethicone 80 mg chewable tablet Take 2 tablets by mouth after meals and at bedtime., OTC HQU21-ylnq carb,duq-VX-mny-dha (CITRANATAL ASSURE) 35 mg iron-1 mg -50 mg-300 mg combo pack Take 1 Dose by mouth daily., eRX, Disp-60 Each, R-5 Procedures Procedures MDM & Notes Coding Patient was evaluated for the complaint of Breast Pain and Chest wall pain ED Course as of Dec 14 618 Tue Dec 15, 2019 0609 Labs reviewed, negative cardiac workup, no risk factors for ACS. No risk factors for PE/DVT neg dimer. Likely chest wall pain, advised to f/u with PCP and return to the ED if worsening of symptoms. Patient understands and agrees with the plan. [JJ] ED Course User Index [JJ] Raad Landry MD History, physical exam findings, results of visit, differential diagnosis, medication regimens and plan of future care have been considered. Additional MDM may be found in the ED course. Differential diagnosis considered and final disposition made based on information gathered during evaluation and may not be completely ruled out. Vital signs were rechecked before final disposition and determined to be stable. Diagnoses ICD-10-CM ICD-9-CM 1. Chest pain, unspecified type R07.9 786.50 Disposition and Condition ED Disposition ED Disposition Condition Comment Disch - Home Stable Raad Hollins. MD Gris, FACEP, FAAEM Tacking Stitch Remover of Emergency and Internal Medicine [facility] #[id number] documented in this encounter Miscellaneous Notes ED Nurse Note - Margarette Jon RN - 12/15/2019 6:18 AM CDTPt given printed and verbal discharge instructions regarding chest pain, encouraged hydration, Pt verbalized understanding of instructions,pt encouraged to follow up with pcp Advised to seek medical attention for new/prolonged/worsening of symptoms, No adverse reaction to meds given in ER noted upon discharge PIV d'cd, dressing to site, catheter in tact. Awake, alert oriented, resp reg unlabored, skin w/d, pt leaving in no apparent distress, D Nurse Note - Margarette Jon RN - 12/15/2019 5:03 AM CDTPt heard screaming "I can't breath", heart rate 160s. RN and providers to room. Pt assisted to slow breathing, heart rate decreased rapidly. Crash cart outside room. Lab notified of add-on order. documented in this encounter Plan of Treatment Name Type Priority Associated Diagnoses Date/Ti me XR CHEST 1 VW IMAGING STAT Chest pain, unspecified typ e 12/15/2019 4:13 AM CDT Health Maintenance Due Date Last Done Comments [...] Name Priority Date/Time Associated Diagnosis Comme nts D-DIMER STAT 12/15/2019 5:12 AM Chest pain, Results for this CDT unspecified type procedure a re in the results section. XR CHEST 1 VW STAT 12/15/2019 4:13 AM Chest pain, CDT unspecified type Procedure Note - [facility], Radia nt Results Inft User - 12/15/2019 4:25 AM CDT XR CHEST 1 VW HISTORY: chest pain COMPARISON: None available FINDINGS: The lungs are clear. No foca l consolidation is present. No pleural effusion or pneum othorax is present. The cardiomediastinal silhou ette is normal. The osseous structures are u nremarkable. IMPRESSION No acute cardiopulmonary abn ormality is present. Preliminary Report Dictated by Resident: Phoenix Floyd CBC WITH DIFF STAT 12/15/2019 3:52 AM Chest pain, Results for this CDT unspecified type procedure a re in the results section. BASIC METABOLIC STAT 12/15/2019 3:52 AM Chest pain, Resul ts for this PANEL (NA, K, CL, CDT unspecified type proced ure are in CO2, GLUCOSE, BUN, the resul ts CREATININE, CA) section. TROPONIN I STAT 12/15/2019 3:52 AM Chest pain, Results for this CDT unspecified type procedure a re in the results section. POCT TEST JOSE JUAN 12/15/2019 3:51 AM Chest pain, R esults for this CDT unspecified type procedure a re in the results section. EKG-12 LEAD Routine 12/15/2019 3:33 AM CDT CONSENT/REFUSAL FOR Routine 12/15/2019 3:07 AM DIAGNOSIS AND CDT TREATMENT documented in this encounter Results D-DIMER (12/15/2019 5:12 AM CDT) Pathologist Sig nature D-DIMER 0.27 <0.41 g/mL (FEU) [facility] Specimen Blood - VENOUS Narrative Performed At This test may be used in conjunction with a [facility] clinical pretest probability (PTP) assessment model to exclude venous thromboembolism (VTE) in patients suspected of deep venous thrombosis (DVT) and pulmonary embolism (PE) A D-Dimer value less than 0.50 g/ml (FEU) has a negative predicative value of 96 to 100% (95% CI)and 97 to 100% (95% CI) as an aid in the diagnosis of deep vein thrombosis (DVT) and pulmonary embolism when there is low or moderate pretest probability of PE or DVT. D-Dimer values are expressed in initial fibrinogen equivalent units (FEU)" The assay results should be used with other information, including the clinical context, in forming a diagnosis. Performing Organization Address City/State/Zipcode Phone Number [facility] CLIA: [id number] [place] [address] TROPONIN I (12/15/2019 3:52 AM CDT) Pathologist Sig nature TROPONIN I <0.012 <=0.034 ng/mL [facility] Specimen Blood - VENOUS Narrative Performed At Equal or Less than 0.034 ng/ml---Normal [facility] Note: Cardiac troponin begins to rise 3-4 hours after the onset of ischemia. Repeat in 4-6 hours if the sample was drawn within 3-4 hours of the onset of the symptom and found normal. Between 0.035 and 0.120 ng/mL--- Borderline. Questionable myocardial injury or necros is Note: Serial measurement may be necessary to confirm or exclude the diagnosis of myocardial injury or necrosis; Clinical correlation (symptoms, EKGs, imaging studies, and others) required; Repeat in 4-6 hours if clinically indicated. Equal or Higher than 0.121 ng/mL---Abnormal. Myocardial Injury or Necrosis Likely Biotin has been reported to cause a negative bias, interpret results relative to patient's use of biotin. Performing Organization Address City/State/Zipcode Phone Number [facility] CLIA: [id number] [place] [address] BASIC METABOLIC PANEL (NA, K, CL, CO2, GLUCOSE, BUN, CREATININE, CA) (12/15/2019 3:52 AM CDT) [facility] NA 138 135 - 145 [facility] mmol/L [facility] K 3.5 3.5 - 5.0 [facility] mmol/L [facility] CL 106 98 - 108 mmol/L [facility] CO2 TOTAL 27 23 - 31 mmol/L [facility] AGAP 5 2 - 16 [facility] BUN 14 7 - 23 mg/dL [facility] GLUCOSE 126 (H) 70 - 110 mg/dL [facility] CREATININE 0.88 0.50 - 1.04 [facility] mg/dL [facility] CALCIUM 9.4 8.6 - 10.6 [facility] mg/dL [facility] eGFR Calculation 81.1 mL/min/1.73m2 [facility] [place]) eGFR Calculation 98.3 mL/min/1.73m2 [facility] () [facility] Specimen Blood - VENOUS Narrative Performed At Association of Glomerular Filtration Rate (GFR) [facility] and Staging of Kidney Disease* + + +- + | GFR (mL/min/1.73 m2) | With Kidney Damage | Without Kidney Damage + + +- + | >90 | Stage one | Normal + + +- + | 60-89 | Stage two | Decreased GFR + + +- + | 30-59 | Stage three | Stage three + + +- + | 15-29 | Stage four | Stage four + + +- + | <15 (or dialysis) | Stage five | Stage five + + +- + *Each stage assumes the associated GFR level has been in effect for at least three months. Stages 1 to 5, with or without kidney disease, indicate chronic kidney disease. Notes: Determination of stages one and two (with eGFR >59mL/min/1.73 m2) requires estimation of kidney damage for at least three months as defined by structural or functional abnormalities of the kidney, manifested by either: Pathological abnormalities or Markers of kidney damage (including abnormalities in the composition of the blood or urine or abnormalities in imaging tests). Performing Organization Address City/State/Zipcode Phone Number [facility] CLIA: [id number] [place] [address] CBC WITH DIFF (12/15/2019 3:52 AM CDT) Pathologist Sig nature WBC 8.40 4.30 - 11.10 [facility] 10*3/L [facility] RBC 4.83 3.93 - 5.25 [facility] 10*6/L [facility] HGB 12.7 11.6 - 15.0 [facility] g/dL [facility] HCT 36.3 35.7 - 45.2 % [facility] MCV 75.2 (L) 80.6 - 95.5 fL [facility] MCH 26.3 25.9 - 32.8 pg [facility] MCHC 35.0 31.6 - 35.1 [facility] g/dL [facility] RDW-SD 37.0 (L) 39.0 - 49.9 fL [facility] RDW-CV 13.7 12.0 - 15.5 % [facility] PLT 272 166 - 358 [facility] 10*3/L [facility] MPV 10.4 9.5 - 12.9 fL [facility] NRBC/100 WBC 0.0 0.0 - 10.0 /100 [facility] WBCs [facility] NRBC x10^3 <0.01 10*3/L [facility] GRAN MAT (NEUT) % 62.6 % [facility] IMM GRAN % 0.40 % [facility] LYMPH % 28.6 % [facility] MONO % 6.9 % [facility] EOS % 1.1 % [facility] BASO % 0.4 % [facility] GRAN MAT x10^3(ANC) 5.27 1.88 - 7.09 [facility] 10*3/uL [facility] IMM GRAN x10^3 0.03 0.00 - 0.06 [facility] 10*3/uL HOSPITAL LABORATORY LYMPH x10^3 2.40 1.32 - 3.29 [facility] 10*3/uL [facility] MONO x10^3 0.58 0.33 - 0.92 [facility] 10*3/uL [facility] EOS x10^3 0.09 0.03 - 0.39 [facility] 10*3/uL [facility] BASO x10^3 0.03 0.01 - 0.07 [facility] 10*3/uL [facility] Specimen Blood - VENOUS Performing Organization Address City/State/Zipcode Phone Number [facility] CLIA: [id number] [place] [address] POCT TEST (12/15/2019 3:51 AM CDT) Pathologist Sig nature POCT PREG negative On board controls acceptable present with C Line POCT PREG LOT # [id number] POCT PREG TEST DATE 11/19/2020 Specimen Urine - URINE, CLEAN CATCH documented in this encounter Visit Diagnoses Diagnosis Chest pain, unspecified type - Primary documented in this encounter Administered Medications Medication Order MAR Action Action Date Dose Rate Site metoprolol (LOPRESSOR) injection Given 12/15/2019 6:11 AM CDT 2 .5 mg 2.5 mg 2.5 mg, Slow IV Push, ONCE, 1 dose, 12/15/19 at 0700, JOSE JUAN documented in this encounter Insurance Payer Benefit Plan Subscriber ID Effective Dates Phone Address Type / Group [employer] [place] [id number] 2019-Presen [phone] [address] PPO/POS [place] - OUT OF t 87 [id number] [place] [address] documented as of this encounter
--- NOTE | 2020-03-08 17:30 | EDPHYS ---
Physician Documentation [facility] Name: Leann Bishop Age: 19 yrs Sex: Female : 2000 Arrival Date: 03/08/2020 Time: 15:23 Bed 23 Private MD: ED Physician Ervin Rubio HPI: 03/08 16:55 This 19 yrs old Black Female presents to ER via Ambulatory with complaints of kb Difficulty Swallowing, Head Pressure. 16:55 The patient presents with sore throat. The patient describes throat pain as constant. kb The patient has not recently seen a physician. 16:56 Onset: The symptoms/episode began/occurred 4 day(s) ago. Severity of symptoms: At their kb worst the symptoms were moderate, in the emergency department the symptoms are unchanged. Modifying factors: The symptoms are alleviated by nothing, the symptoms are aggravated by swallowing, Patient's oral intake status: good Denies contact with similarly ill indivduals. Associated signs and symptoms: Pertinent positives: headache, Sore throat Pertinent negatives chest pain, chills, cough, diarrhea, dysphagia, earache, fever, flu-like symptoms, nausea, rhinorrhea, shortness of breath, vomiting. The patient has not experienced similar symptoms in the past. Historical: - Allergies: 16:03 No Known Drug Allergies; ss - PSHx: 16:03 ; ss - Immunization history:: Flu vaccine is not up to date. - Social history:: Smoking status: Patient denies any tobacco usage or history of. ROS: 16:56 Constitutional: Negative for fever, chills, and weight loss, Cardiovascular: Negative kb for chest pain, palpitations, and edema, Respiratory: Negative for shortness of breath, cough, wheezing, and pleuritic chest pain, Abdomen/GI: Negative for abdominal pain, nausea, vomiting, diarrhea, and constipation, MS/Extremity: Negative for injury and deformity, Skin: Negative for injury, rash, and discoloration. 16:56 ENT: Positive for sore throat. 16:56 Neuro: Positive for headache. Exam: 16:57 Constitutional: This is a well developed, well nourished patient who is awake, alert, kb and in no acute distress. Head/Face: Normocephalic, atraumatic. ENT: Nares patent. No nasal discharge, no septal abnormalities noted. Tympanic membranes are normal and external auditory canals are clear. Oropharynx with no redness, swelling, or masses, exudates, or evidence of obstruction, uvula midline. Mucous membranes moist. Chest/axilla: Normal chest wall appearance and motion. Nontender with no deformity. No lesions are appreciated. Cardiovascular: Regular rate and rhythm with a normal S1 and S2. No gallops, murmurs, or rubs. Normal PMI, no JVD. No pulse deficits. Respiratory: Lungs have equal breath sounds bilaterally, clear to auscultation and percussion. No rales, rhonchi or wheezes noted. No increased work of breathing, no retractions or nasal flaring. Abdomen/GI: Soft, non-tender, with normal bowel sounds. No distension or tympany. No guarding or rebound. No evidence of tenderness throughout. Skin: Warm, dry with normal turgor. Normal color with no rashes, no lesions, and no evidence of cellulitis. MS/ Extremity: Pulses equal, no cyanosis. Neurovascular intact. Full, normal range of motion. Neuro: Awake and alert, GCS 15, oriented to person, place, time, and situation. Cranial nerves II-XII grossly intact. Motor strength 5/5 in all extremities. Sensory grossly intact. Cerebellar exam normal. Normal gait. Vital Signs: 16:04 BP 117 / 72; Pulse 98; Resp 18; Temp 99.0; Pulse Ox 100% ; Weight 80.29 kg; Height 5 ss ft. 1 in. (154.94 cm); Pain 6/10; 16:04 Body Mass Index 33.44 (80.29 kg, 154.94 cm) ss MDM: 16:23 Patient medically screened. kb 16:56 Data reviewed: vital signs, nurses notes. Data interpreted: Pulse oximetry: on room air kb is 100 %. Interpretation: normal. 17:28 Counseling: I had a detailed discussion with the patient and/or guardian regarding: the kb historical points, exam findings, and any diagnostic results supporting the discharge/admit diagnosis, lab results, the need for outpatient follow up, a family practitioner, to return to the emergency department if symptoms worsen or persist or if there are any questions or concerns that arise at home. 03/08 16:07 Order name: Flu; Complete Time: 17:28 kb 03/08 16:07 Order name: Strep; Complete Time: 17:28 kb 03/08 17:29 Order name: Throat Culture EDMS Administered Medications: No medications were administered Disposition: 03/09 08:14 Co-signature as Attending Physician, Ervin Rubio MD I agree with the assessment and kdr plan of care. Disposition: 03/08/20 17:30 Discharged to Home. Impression: Acute pharyngitis, unspecified. - Condition is Stable. - Discharge Instructions: Pharyngitis, [id number], COVID-19. - Medication Reconciliation Form, Thank You Letter, Antibiotic Education, Prescription Opioid Use form. - Follow up: Emergency Department; When: As needed; Reason: Worsening of condition. Follow up: Private Physician; When: 2 - 3 days; Reason: Recheck today's complaints, Continuance of care, Re-evaluation by your physician. Signatures: Dispatcher [employer] [facility] Taylor Reveles, DIRECTOR LEARNING SERVICES-C DIRECTOR LEARNING SERVICES-Ckb Ervin Rubio MD MD [facility] Bri Johnson RN RN ss Corrections: (The following items were deleted from the chart) 03/08 17:37 17:29 CORONAVIRUS+MR.LAB.BRZ ordered. [facility] 17:42 17:30 03/08/2020 17:30 Discharged to Home. Impression: Acute pharyngitis, unspecified. ss Condition is Stable. Forms are Medication Reconciliation Form, Thank You Letter, Antibiotic Education, Prescription Opioid Use. Follow up: Emergency Department; When: As needed; Reason: Worsening of condition. Follow up: Private Physician; When: 2 - 3 days; Reason: Recheck today's complaints, Continuance of care, Re-evaluation by your physician. kb
--- NOTE | 2020-03-08 17:30 | ER ---
Nurse's Notes [facility] Name: Leann Bishop Age: 19 yrs Sex: Female : 2000 Arrival Date: 03/08/2020 Time: 15:23 Bed 23 Private MD: Diagnosis: Acute pharyngitis, unspecified Presentation: 03/08 16:04 Coronavirus screen: Client denies travel out of the [place] in the last 14 days. headache, ss sore throat, Client presents with at least one sign or symptom that may indicate coronavirus-19. Standard/surgical mask placed on the client. Ebola Screen: Patient denies travel to an Ebola-affected area in the 21 days before illness onset. Initial Sepsis Screen: Does the patient meet any 2 criteria? HR > 90 bpm. No. Patient's initial sepsis screen is negative. Does the patient have a suspected source of infection? Yes: Other: sore throat. Risk Assessment: Do you want to hurt yourself or someone else? Patient reports no desire to harm self or others. Onset of symptoms was March 05, 2020. 16:04 Method Of Arrival: Ambulatory ss 16:04 Acuity: LARS 4 ss 16:05 Chief complaint: Patient states: Sore throat and painful swallowing for 4 days. 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 Historical: - Allergies: 16:03 No Known Drug Allergies; ss - PSHx: 16:03 ; ss - Immunization history:: Flu vaccine is not up to date. - Social history:: Smoking status: Patient denies any tobacco usage or history of. Screenin:33 Abuse screen: Denies threats or abuse. Denies injuries from another. Nutritional ss screening: No deficits noted. Tuberculosis screening: Never had TB. Fall Risk None identified. Assessment: 17:33 Reassessment: Pt refused COVID-19 swab as she has an appointment at [facility] to have this ss swab obtained. Vital Signs: 16:04 BP 117 / 72; Pulse 98; Resp 18; Temp 99.0; Pulse Ox 100% ; Weight 80.29 kg; Height 5 ss ft. 1 in. (154.94 cm); Pain 6/10; 16:04 Body Mass Index 33.44 (80.29 kg, 154.94 cm) ED Course: 15:23 Patient arrived in ED. ag5 15:39 Taylor Reveles FNP-C is [facility]. kb 15:39 Ervin Rubio MD is Attending Physician. kb 16:03 Arm band placed on. ss 16:05 Triage completed. ss 17:16 Bri Johnson, RN is Primary Nurse. ss 17:33 Patient has correct armband on for positive identification. Bed in low position. ss 17:33 No provider procedures requiring assistance completed. Patient did not have IV access ss during this emergency room visit. Administered Medications: No medications were administered Outcome: 17:30 Discharge ordered by MD. kb 17:39 Discharged to home ambulatory. ss 17:39 Condition: good 17:39 Discharge instructions given to patient, Instructed on discharge instructions, follow up and referral plans. medication usage, Demonstrated understanding of instructions, follow-up care. 17:42 Patient left the ED. ss Signatures: Taylor Reveles FNP-C FNP-Phillipb Bri Johnson RN RN Todd Denney ag5
[2020-03-09 01:25] VITALS: BP 117/72; TEMP 99; O2SAT 100
== END 2020-03-08 17:42 | disposition home or self-care (01) ==
LOC: ER 15:18
DX: J02.9 Acute pharyngitis, unspecified (principal); Z53.29 Procedure and treatment not carried out because of patient's decision for other reasons
CPT/HCPCS: 87070; 87081; 87804; 99281